=== PATIENT | male | born 1965 | race Caucasian/White ===

== ENCOUNTER 2020-10-20 18:08 | Inpatient (IN) | payer OTHER ==
[~2020-10-20] VITALS: Ht 182.9 cm; Wt 96.2 kg
[~2020-10-20 18:08] MED LIST: K-DUR TAB 20 M20 MEQ PO; ZOFRAN ODT 4 MG4 MG SL
[2020-10-20 20:01] LABS: HEMOGLOBIN 11.4 gm/dl (14.0-17.5); RED BLOOD COUNT 4.6 M/UL (4.20-5.50); WHITE BLOOD COUNT 13.5 K/UL (4.5-11.0)
[2020-10-21] MEDS ORDERED: HYDROCODON-ACE1 EAC6 PO (01:08)
[2020-10-21] MEDS ORDERED: LEVOTHYROXINE25 MCG PO (01:09)
[2020-10-21] MEDS ORDERED: FUROSEMIDE20 MG PO (01:09)
[2020-10-21 05:06] LABS: RED BLOOD COUNT 4.42 M/UL (4.20-5.50); WHITE BLOOD COUNT 14.2 K/UL (4.5-11.0)
[2020-10-22 05:15] LABS: HEMOGLOBIN 10.2 gm/dl (14.0-17.5); RED BLOOD COUNT 4.11 M/UL (4.20-5.50); WHITE BLOOD COUNT 10.7 K/UL (4.5-11.0)
[2020-10-22 11:13] LABS: HBSAG SCREEN Positive (Negative); HEP A AB, IGM Negative (Negative); HEP B CORE AB, IGM Positive (Negative); HEP C VIRUS AB <0.1 (0.0-0.9)
[2020-10-23 02:10] LABS: HEMOGLOBIN 9.7 gm/dl (14.0-17.5); RED BLOOD COUNT 3.92 M/UL (4.20-5.50)
--- NOTE | 2020-10-23 23:47 | NUR ---
2129-NOTIFIED DR FOSTER THAT PATIENTS HR WAS IN THE 150'S ON THE TELEMTRY MONITOR AND THAT HE WAS READING AFIB WITH RVR. HE ORDERED A STAT EKG WHICH SHOWED AFIB RVR. WANTED TO START PATIENT ON AMIODARONE DRIP AND I TOLD HIM PATIENT HAD TO BE TRANSFERRED. I WENT IN AND EDUCATED PATIENT ON REASONS WHY HE NEEDED TO BE TRANSFERRED AND RISKS OF NOT BEING TRANSFERRED. PATIENT REFUSED TO BE TRANSFERRED AND REFUSED AMIODARONE. I NOTIFIED DR FOSTER WHO TOLD ME TO NOTIFY DR LACEY. I NOTIFIED DR LACEY WITH CARDIOLOGY AND HE SAID THAT DR FOSTER WAS IN THE HOSPITAL TO HAVE HIM GO TALK TO THE PATIENT AND IF HE HAD ANY QUESTIONS FOR HIM TO CALL. DR FOSTER AND I BOTH GO INTO PATIENTS ROOM AND HE EXPLAINED TO PATIENT REASON HE NEEDED TO BE TRANSFERRED WELL RISKS OF STAYING. PATIENT STATED THAT HE DID NOT WANT TO BE TRANSFERRED THAT HE WOULD SIGN OUT BEFORE DOING SO. AGAIN DR FOSTER EDUCATED PATIENT AND I EDUCATED PATIENT AND HE STILL REFUSED. DR FOSTER TOLD HIM TO THINK ABOUT IT FOR A LITTLE BIT THAT WE WOULD HOLD THE BED IN PCU FOR HIM. I GAVE PATIENT ENOUGH TIME TO CONSULT WITH WHO IS AT BEDSIDE AND I WENT BACK IN AND HE STILL REFUSED TO BE TRANSFERRED. HE STATED THAT HE THINKS ITS WHERE HES BEING MESSED WITH THATS MAKING HIM GO INTO AFIB RVR AND THAT HE DOESN'T WANT TO BE MOVED. I AGAIN EDUCATED ON RISKS OF STAYING ON MEDSURG. PATIENT SAID HE UDNERSTOOD AND THAT IF HE CODED AND WAS BROUGHT BACK THAT IF HE COULD TALK HE WOULD REFUSE TO BE INTUBATED BUT YET HE STILL WANTED TO REMAIN FULL CODE. I NOTIFIED THERAPY AIDE AND I NOTIFIED DR FOSTER. I WILL CONTINUE TO MONITOR PATIENT AND NOTIFY MD NEEDED.
[2020-10-24 01:41] LABS: RED BLOOD COUNT 4.08 M/UL (4.20-5.50); WHITE BLOOD COUNT 11.4 K/UL (4.5-11.0)
--- NOTE | 2020-10-24 05:08 | NUR ---
TOLD PATIENT TO MAKE SURE HE DIDN'T DRINK ANYTHING BECAUSE HE HAD TO HAVE AN ULTRASOUND OF HIS ABDOMEN THIS MORNING AND HE SAID THAT HE SPOKE WITH THE DOCTOR YESTERDAY AND THEY AGREED TO CHANGE IT TO WHEN HE WAS DISCHARGED. I ALSO EDUCATED PATIENT ON 1000CC FLUID RESTRICTION AND HE SAID HE HADN'T DRUNK 1000CC.
[2020-10-25 03:44] LABS: HEMOGLOBIN 9.8 gm/dl (14.0-17.5); RED BLOOD COUNT 4.06 M/UL (4.20-5.50); WHITE BLOOD COUNT 10.9 K/UL (4.5-11.0)
[2020-10-26 02:14] LABS: RED BLOOD COUNT 4.52 M/UL (4.20-5.50); WHITE BLOOD COUNT 18.2 K/UL (4.5-11.0)
[2020-10-26 16:52] LABS: HEMOGLOBIN 9.7 gm/dl (14.0-17.5)
[2020-10-27 02:44] LABS: HEMOGLOBIN 9.4 gm/dl (14.0-17.5); RED BLOOD COUNT 3.81 M/UL (4.20-5.50); WHITE BLOOD COUNT 13.9 K/UL (4.5-11.0)
--- NOTE | 2020-10-27 16:02 | NUR ---
FAMILY NOTED TO BE GIVING PT MULTIPLE DRINKS AND THIS NURSE EDUCATED FAMILY AND PT OF FLUID RESTRICTION AND HOW MUCH THE PT CAN HAVE WITH VOICED UNDERSTANDING BUT CONT TO GIVE PT CUPS OF DRINKS. NOTIFIED
[2020-10-28 02:35] LABS: HEMOGLOBIN 9.5 gm/dl (14.0-17.5); RED BLOOD COUNT 3.84 M/UL (4.20-5.50); WHITE BLOOD COUNT 16.1 K/UL (4.5-11.0)
[2020-10-28 11:14] LABS: HBSAG SCREEN Positive (Negative); HEP B CORE AB, TOT Positive (Negative); HEP C VIRUS AB <0.1 (0.0-0.9)
[2020-10-29 03:07] LABS: HEMOGLOBIN 9.6 gm/dl (14.0-17.5); RED BLOOD COUNT 3.96 M/UL (4.20-5.50); WHITE BLOOD COUNT 12.8 K/UL (4.5-11.0)
[2020-10-30 02:30] LABS: HEMOGLOBIN 9.1 gm/dl (14.0-17.5); RED BLOOD COUNT 3.82 M/UL (4.20-5.50); WHITE BLOOD COUNT 13.1 K/UL (4.5-11.0)
[2020-10-30 02:57] LABS: BUN/CREATININE RATIO 43 (0-10)
--- NOTE | 2020-10-30 21:30 | NUR ---
ATTEMPTED TO GO INTO PATIENTS ROOM TO TAKE BEDSIDE DRINKS AWAY. PATIENT STATES "IM NOT GOING BY WHAT SAYS, IM GOING BY WHAT SAYS." AND REFUSES TO LET ME TAKE BEDSIDE DRINKS. INFORMED PATIENT AND SON THE IMPORTANCE OF LIMITING THE AMOUND OF FLUID THAT PATIENT DRINKS AND PATIENT STATES HE ISNT DRINKING THE AMOUNT THAT IS BEING CHARTED DURING THE DAY AND THAT THE SON DRINKS MOST OF WHAT PATIENT RECIEVES ON THE TRAY. TO PREVENT ANY FURTHER CONFUSION PATIENT AND SON TOLD THAT IF PATIENT NEEDS INSULATED EDWIN CUP AT BEDSIDE TO BE REFILLED TO CALL OUT AND HAVE STAFF COME AND REFILL THE CUP TO MONITOR THE AMOUNT OF INTAKE FOR PATIENT. PATIENT AND SON BOTH ARE IN AGREEANCE OF THESE TERMS AND VERBALIZE THEY WILL COMPLY. SON STATES THAT HE HAS DRINKS IN ROOM FOR HIMSELF SPECIFICALLY.
[2020-10-31 03:06] LABS: HEMOGLOBIN 9.3 gm/dl (14.0-17.5); RED BLOOD COUNT 3.9 M/UL (4.20-5.50); WHITE BLOOD COUNT 14.6 K/UL (4.5-11.0)
[2020-10-31 03:25] LABS: BUN/CREATININE RATIO 41 (0-10)
[2020-11-01 04:29] LABS: BUN/CREATININE RATIO 39 (0-10)
[2020-11-01 13:19] LABS: BUN/CREATININE RATIO 35 (0-10)
--- NOTE | 2020-11-01 21:10 | NUR ---
PATIENT REQUESTING MORE FLUIDS AT THIS TIME. NURSE INFORMED PATIENT OF IMPORTANCE OF FLUID RESTRICTION TO BOTH DECREASE SWELLING AND TO INCREASE SODIUM LEVEL. PATIENT AND DAUGHTER TAUGHT ABOUT HOW TO ACCURATELY MEASURE ICE CHIPS AND WATER CONTENT. INFORMATIONAL SHEETS PRINTED TO SHOW CONVERSION TABLE OF HOW TO INTERPRET THAT A FULL CUP OF ICE CHIPS IS EQUAL TO 120 ML AND IF FLUIDS ARE ADDED TO THAT THE FULL AMOUNT OF FLUID WOULD BE 240 IN A CUP FULL OF ICE WATER.
[2020-11-02 04:10] LABS: HEMOGLOBIN 9.9 gm/dl (14.0-17.5); RED BLOOD COUNT 4.12 M/UL (4.20-5.50); WHITE BLOOD COUNT 14.1 K/UL (4.5-11.0)
[2020-11-02 04:35] LABS: BUN/CREATININE RATIO 37 (0-10)
--- NOTE | 2020-11-02 05:30 | NUR ---
PATIENT REQUEST ANOTHER GLASS OF ICE WATER. INFORMED PATIENT THAT HE HAS HAD 720 ML OF FLUIDS ON DAY SHIFT AND THAT HE HAS ALREADY EXCEEDED HIS LIMIT TONIGHT WITH THE 2 FULL GLASSES OF WATER HE REQUESTED. PATIENT AND DAUGHTER SAID THAT DR. LACEY TOLD HIM TO TRY TO "COMPLY WITH FLUID RESTRICTION MUCH POSSIBLE". PATIENT SAYS HE WANTS ANOTHER CUP OF ICE WATER AND THAT HE WILL DRINK IT NO MATTER WHAT. EXPLAINED TO PATIENT ONCE AGAIN THE IMPORTANCE OF FLUID RESTRICTION BUT HE INSIST ON GETTING ANOTHER CUP.
--- NOTE | 2020-11-03 07:10 | NUR ---
PT REFUSING AM LABS, EXPLAINED IMPORTANCE OF LABS TO PT AND DAUGHTER WITH VOICED UNDERSTANDING AND PT CONTINUES TO REFUSE. WILL NOTIFY
--- NOTE | 2020-11-03 09:46 | NUR ---
PT REFUSING LASIX GTT AT THIS TIME. MD IN ROOM AND EXPLAINED IMPORTANCE OF LASIX GTT AND PT AND DAUGHTER CONT TO REFUSE AT THIS TIME. PT ALSO CONT TO REFUSE LABS AFTER MD EXPLAINED IMPORTANCE OF HAVING LABS DRAWN WITH VOICED UNDERSTANDING.
[2020-11-03 16:21] LABS: HEMOGLOBIN 9.8 gm/dl (14.0-17.5); RED BLOOD COUNT 4.05 M/UL (4.20-5.50); WHITE BLOOD COUNT 12.4 K/UL (4.5-11.0)
[2020-11-03 16:44] LABS: BUN/CREATININE RATIO 39 (0-10)
[2020-11-04 08:26] LABS: BUN/CREATININE RATIO 36 (0-10)
[2020-11-05 08:58] LABS: BUN/CREATININE RATIO 38 (0-10)
[2020-11-06 03:00] LABS: BUN/CREATININE RATIO 41 (0-10)
[2020-11-06] MEDS ORDERED: MAALOX PLUS 3030 ML PO (19:00)
[2020-11-06] MEDS ORDERED: BUMETANIDE1 MG PO (19:00)
[2020-11-06] MEDS ORDERED: ALDACTONE 25MG25 MG PO (19:00)
[2020-11-06] MEDS ORDERED: CAPTOPRIL12.5 MG PO (19:00)
[2020-11-06] MEDS ORDERED: WARFARIN SODIUM5 MG PO (19:00)
[2020-11-06] MEDS ORDERED: PHENERGAN IM25 MG/ML IV (19:00)
[2020-11-06] MEDS ORDERED: STIMULANT LAXA1 EACH PO (19:00)
[2020-11-06] MEDS ORDERED: HUMIBID LA TAB600 MG PO (19:00)
[2020-11-06] MEDS ORDERED: BISACODYL10 MG PR (19:00)
[2020-11-06] MEDS ORDERED: LEVALBUTER0.63 MG/3 NEB (19:00)
[2020-11-06] MEDS ORDERED: PROTONIX 40 MG40 M1 PO (19:00)
[2020-11-06] MEDS ORDERED: CHRONULAC20 GM/30 M PO (19:00)
[2020-11-06] MEDS ORDERED: CARVEDILOL3.125 MG PO (19:00)
--- NOTE | 2020-11-06 23:26 | NUR ---
11/06/20 2245 EMS ARRIVED TO VISUAL DISPLAY MANAGER PT. PT HAS NO COMPLAINTS, NO COMPLAINTS OF PAIN, AND SHOWS NO SIGNS OF DISTRESS. PT'S VITALS ARE FOLLOWS: B/P 127/75, HEART RATE 110, RESPIRATIONS 19, OXYGEN SATURATION 97, TEMPANIC TEMPERATURE 96.9. PT MOVED ONTO GURNEY WITH NO COMPLAINTS, AN EASY MOVE, LEAVING WITH PERSONAL BELONGINGS AND SON.
== END 2020-11-06 22:45 | disposition short-term general hospital (02) | DRG 682 ==
LOC: ER1 18:08 → CDU 21:55 → MED SURG 4 21:55 → PROG CARE 21:55 → MED SURG 4 10-21 00:39 → PROG CARE 10-24 16:27
PROVIDERS: Emergency Medicine; Family Medicine; Internal Medicine; Internal Medicine Infectious Disease; Internal Medicine Interventional Cardiology; Internal Medicine Nephrology; ADMIT Internal Medicine
PROC: B24BZZZ Ultrasonography of Heart with Aorta (ICD-10-PCS; principal; 2020-10-21)
PROC: B24BZZZ Ultrasonography of Heart with Aorta (ICD-10-PCS; 2020-11-03)
DX: N17.9 Acute kidney failure, unspecified (principal); I50.23 Acute on chronic systolic (congestive) heart failure; J96.01 Acute respiratory failure with hypoxia; R57.0 Cardiogenic shock; I26.99 Other pulmonary embolism without acute cor pulmonale; J18.9 Pneumonia, unspecified organism; I42.0 Dilated cardiomyopathy; E87.1 Hypo-osmolality and hyponatremia; B16.9 Acute hepatitis B without delta-agent and without hepatic coma; R17 Unspecified jaundice; I82.432 Acute embolism and thrombosis of left popliteal vein; K92.0 Hematemesis; D68.9 Coagulation defect, unspecified; I48.19 Other persistent atrial fibrillation; E87.3 Alkalosis; E46 Unspecified protein-calorie malnutrition; Z20.822 Contact with and (suspected) exposure to COVID-19; J44.9 Chronic obstructive pulmonary disease, unspecified; E87.5 Hyperkalemia; K80.20 Calculus of gallbladder without cholecystitis without obstruction; D72.829 Elevated white blood cell count, unspecified; R79.89 Other specified abnormal findings of blood chemistry; G89.29 Other chronic pain; M54.9 Dorsalgia, unspecified; F12.90 Cannabis use, unspecified, uncomplicated; D64.9 Anemia, unspecified; D69.6 Thrombocytopenia, unspecified; F17.210 Nicotine dependence, cigarettes, uncomplicated; I51.3 Intracardiac thrombosis, not elsewhere classified; Z79.890 Hormone replacement therapy; Z86.711 Personal history of pulmonary embolism; Z79.899 Other long term (current) drug therapy; Z79.891 Long term (current) use of opiate analgesic; Z79.01 Long term (current) use of anticoagulants; Z68.23 Body mass index [BMI] 23.0-23.9, adult
CPT/HCPCS: ECHO; 36415; 71045; 71046; 76705; 80048; 80053; 80074; 80307; 81001; 82043; 82248; 82436; 82533; 82550; 82553; 82570; 82800; 82803; 83036; 83690; 83735; 83880; 83935; 84100; 84132; 84133; 84156; 84300; 84439; 84443; 84484; 84550; 84560; 85014; 85018; 85025; 85027; 85379; 85610; 85652; 85730; 86140; 86704; 86706; 86708; 86803; 87340; 89050; 93005; 93306; 93308; 93970; 94640; 94664; 94760; 96374; 96375; 97110; 97110-GP-CQ; 97163; 97167; 97530-GP-CQ; 99285; A6212; C9113; J1160; J1205; J1250; J1335; J1644; J1940; J2270; J2354; J2405; J2550; J7030; P9047; Q9967; U0002